=== PATIENT | female | born 1990 | race African-American/Black ===

== ENCOUNTER 2017-02-17 18:35 | Emergency (ER) | payer MEDICAID ==
[~2017-02-17] VITALS: Ht 152.4 cm; Wt 127.0 kg
[~2017-02-17 18:35] MED LIST: PREN-88 PO
[2017-02-17 18:42] VITALS: BP 133/73
[2017-02-17 20:41] LABS: BASOPHILS % 1.6 % (0.0-2.0); EOSINOPHILS % 0.9 % (0.0-5.0); HEMOGLOBIN. 11.7 g/dL (12.0-16.0); LYMPHOCYTES % 27.6 % (20.0-50.0); MEAN CORPUSCULAR VOLUME 69.5 fL (81.0-99.0); MEAN PLATELET VOLUME 7.8 fl (7.4-10.4); MONOCYTES % 6.2 % (2.0-8.0); NEUTROPHILS % 63.7 % (40.0-76.0); PLATELET 372 x1000/uL (130-400); RED BLOOD CELL COUNT 5.32 mill/uL (4.2-5.4)
[2017-02-17 20:47] LABS: CHLORIDE 102 mEq/L (98-107)
[2017-02-17 20:53] LABS: CARBON DIOXIDE 27 mEq/L (21-32)
[2017-02-17 21:10] LABS: B-HCG QUANTITATIVE 26436 mIU/mL (<3)
[2017-02-17 21:12] LABS: PLATELET ESTIMATE NORMAL
[2017-02-17 23:47] LABS: CLARITY URINE TURBID (CLEAR); COLOR URINE ORANGE (YELLOW); GLUCOSE URINE NEGATIVE (NEGATIVE); KETONES URINE NEGATIVE (NEGATIVE); LEUKOCYTE ESTERASE URINE 2+ (NEGATIVE); NITRITE URINE NEGATIVE (NEGATIVE); OCCULT BLOOD URINE 3+ (NEGATIVE); PROTEIN URINE 2+ (NEGATIVE); SPECIFIC GRAVITY URINE 1.037 (1.005-1.030)
== END 2017-02-19 14:34 | disposition home or self-care (01) ==
LOC: ER 18:52
DX: O20.0 Threatened abortion (principal); O23.41 Unspecified infection of urinary tract in pregnancy, first trimester; Z3A.01 Less than 8 weeks gestation of pregnancy
CPT/HCPCS: 36415; 76801; 80053; 81001; 84702; 85025; 86850; 86900; 99285

== ENCOUNTER 2017-02-19 02:51 | Emergency (ER) | payer MEDICAID ==
[~2017-02-19] VITALS: Ht 172.7 cm; Wt 100.0 kg
[2017-02-19] MEDS ORDERED: SODIUM CHLORIDE 0.9% 1,000 ML IV ONE (04:32)
[2017-02-19] MEDS ORDERED: ACETAMINOPHEN 325MG TABLET PO ONE (04:45)
[2017-02-19 05:55] LABS: BASOPHILS % 0.5 % (0.0-2.0); EOSINOPHILS % 0.2 % (0.0-5.0); HEMATOCRIT. 35.4 % (36.0-48.0); HEMOGLOBIN. 11.3 g/dL (12.0-16.0); LYMPHOCYTES % 13.4 % (20.0-50.0); MEAN CORPUSCULAR HEMOGLOBIN 22.2 pg (28.0-32.0); MEAN CORPUSCULAR VOLUME 69.5 fL (81.0-99.0); MONOCYTES % 4.6 % (2.0-8.0); NEUTROPHILS % 81.3 % (40.0-76.0); PLATELET 346 x1000/uL (130-400); RED BLOOD CELL COUNT 5.09 mill/uL (4.2-5.4); RED CELL DISTRIBUTION WIDTH 19.9 % (11.6-14.6)
[2017-02-19 06:18] LABS: CARBON DIOXIDE 24 mEq/L (21-32); CHLORIDE 105 mEq/L (98-107)
[2017-02-19 06:25] LABS: B-HCG QUANTITATIVE 16966 mIU/mL (<3)
[2017-02-19 07:00] VITALS: BP 149/91
== END 2017-02-19 07:45 | disposition home or self-care (01) ==
LOC: ER 03:18
DX: O03.9 Complete or unspecified spontaneous abortion without complication (principal); O23.40 Unspecified infection of urinary tract in pregnancy, unspecified trimester; Z98.890 Other specified postprocedural states
CPT/HCPCS: 36415; 76856; 80053; 81025; 84702; 85025; 86850; 86900; 86901; 99285; J7030; Z7610